=== PATIENT | female | born 1995 | race Two or more races ===

== ENCOUNTER 2021-05-17 09:00 | Inpatient (IN) | payer BC, OTHER ==
[2021-05-17] MEDS: ELECTROLYTE-148 SOLN 1,000 ML IV SCH (09:30)
[2021-05-17] MEDS ORDERED: PROMETHAZINE HCL 25 MG/1 ML VIAL IVPUSH ONE (09:37)
[2021-05-17] MEDS ORDERED: BUTORPHANOL TARTRATE 1 MG/ML VIAL IVPB PRN (09:37)
[2021-05-17] MEDS ORDERED: AMPICILLIN SODIUM 2 GM VIAL ONE (09:55)
[2021-05-17] MEDS ORDERED: AMPICILLIN - 2 GM in SODIUM CHLORIDE 100 ML IVPB ONE (10:00)
[2021-05-17 10:10] LABS: BASO % 0.2 % (0-2.0); EOS % 0.4 % (0-4.5); HEMATOCRIT 32.3 % (32.4-45.2); LYMPH % 16.8 % (8-40); MCH 31.5 pg (25.7-33.7); MCHC 34.2 g/dl (32.0-36.0); MEAN CELL VOLUME 92.2 fl (80-96); MEAN PLT VOLUME 9.3 fl (7.5-11.1); MONO % 4.2 % (3.8-10.2); NEUT % 78.4 % (42.8-82.8); PLATELET COUNT 211 10^3/uL (134-434); WHITE BLOOD COUNT 8.7 K/mm3 (4.0-10.0)
[2021-05-17 10:11] VITALS: BMI 28.7
[2021-05-17 10:16] LABS: INR 0.84 (0.83-1.09); PROTHROMBIN TIME (PATIENT) 10.2 SEC (9.7-13.0)
[2021-05-17 10:19] LABS: ACTIVATED PTT 25.6 SECONDS (25.2-36.5)
[2021-05-17 10:35] LABS: CALCIUM 8.6 mg/dL (8.5-10.1)
[2021-05-17 10:37] LABS: BLOOD UREA NITROGEN 11.7 mg/dL (7-18)
[2021-05-17 10:39] LABS: CREATININE 0.5 mg/dL (0.55-1.3)
[2021-05-17 11:31] LABS: POC NITRAZINE POS
[2021-05-17] MEDS ORDERED: AMPICILLIN SODIUM 1 GM VIAL ONE ×3 (14:05→21:56)
[2021-05-17] MEDS: AMPICILLIN - 1 GM in SODIUM CHLORIDE 100 ML IVPB SCH ×3 (14:08→22:30)
[2021-05-18] MEDS ORDERED: PROMETHAZINE HCL 25 MG/1 ML VIAL ONE (00:34)
[2021-05-18] MEDS ORDERED: BUTORPHANOL TARTRATE 2 MG/ML VIAL ONE (00:34)
[2021-05-18] MEDS ORDERED: AMPICILLIN SODIUM 1 GM VIAL ONE ×6 (01:55→22:11)
[2021-05-18] MEDS: AMPICILLIN - 1 GM in SODIUM CHLORIDE 100 ML IVPB SCH ×6 (02:00→22:14)
[2021-05-18] MEDS: ELECTROLYTE-148 SOLN 1,000 ML IV SCH ×2 (03:10→10:00)
[2021-05-18] MEDS ORDERED: BUPIVACAINE HCL/PF 0.25% (2.5MG/ML) 10 ML VIAL ONE ×2 (11:48→20:14)
[2021-05-18] MEDS ORDERED: FENTANYL/BUPIVACAINE/NS/PF - PCEA - 50 ML DISP.SYRIN EP ONE ×4 (11:50→22:57)
[2021-05-18] MEDS ORDERED: LIDOCAINE HCL/EPINEPHRINE/PF 10 ML VIAL ONE (12:09)
[2021-05-18] MEDS ORDERED: NALOXONE HCL 0.4 MG/ML VIAL IVPUSH PRN (12:27)
[2021-05-18] MEDS ORDERED: FENTANYL/BUPIVACAINE/NS/PF - PCEA - 50 ML DISP.SYRIN EP SCH (12:30)
[2021-05-18] MEDS ORDERED: OXYTOCIN 30 UNITS in 0.9% NS 30 UNIT/500 ML INFUS.BAG IVPB ONE (15:50)
[2021-05-18] MEDS: OXYTOCIN 30 UNITS in 0.9% NS 30 UNIT/500 ML INFUS.BAG IVPB SCH (16:00)
[2021-05-18] MEDS ORDERED: PCA PUMP NR ONE (17:11)
[2021-05-18 18:35] LABS: EPI CELLS >36 /uL (0-25.1); HYALINE CASTS 31 /uL (0-3.1); URINE APPEARANCE CLOUDY; URINE BACTERIA 89 /uL (0-1359); URINE BILIRUBIN NEGATIVE (NEGATIVE); URINE COLOR YELLOW; URINE GLUCOSE (UA) NEGATIVE (NEGATIVE); URINE KETONE NEGATIVE (NEGATIVE); URINE LEUK ESTERASE NEGATIVE (NEGATIVE); URINE NITRITE NEGATIVE (NEGATIVE); URINE PROTEIN 4+ (NEGATIVE); URINE UROBILINOGEN 0.2 mg/dL (0.2-1.0)
[2021-05-18 18:43] LABS: URINE RBC 1135.8 /uL (0-23.9); URINE WBC 70.1 /uL (0-25.8)
[2021-05-18 18:45] LABS: RETICULOCYTES 1.88 % (0.5-1.5)
[2021-05-18 18:57] LABS: GAMMA GLUTAMYL TRANSPEPTIDASE < 3 U/L (5-85)
[2021-05-18 19:02] LABS: SGOT/AST 13 U/L (15-37); URIC ACID 4.3 mg/dL (2.6-7.2)
[2021-05-18 19:22] LABS: URINE CRYSTALS NON SEEN /hpf
[2021-05-18] MEDS ORDERED: OXYTOCIN 20 UNITS in 0.9% NS 20 UNIT/1,000 ML INFUS.BAG IV ONE (22:57)
[2021-05-19] MEDS ORDERED: BENZOCAINE 28 GM HEMORRHOIDAL OINTMENT PR PRN (00:28)
[2021-05-19] MEDS ORDERED: BENZOCAINE 20% 57 GM BOTTLE TP PRN (00:28)
[2021-05-19] MEDS ORDERED: IBUPROFEN 600 MG TABLET (FP) PO PRN (00:28)
[2021-05-19] MEDS ORDERED: METHYLERGONOVINE MALEATE 0.2 MG/1 ML AMP IM PRN (00:28)
[2021-05-19] MEDS ORDERED: WITCH HAZEL 50% (TUCKS) 40 PAD/JAR PAD TP PRN (00:28)
[2021-05-19] MEDS ORDERED: BISACODYL 10 MG SUPP.RECT PR PRN (00:28)
[2021-05-19] MEDS ORDERED: OXYTOCIN 20 UNITS in 0.9% NS 20 UNIT/1,000 ML INFUS.BAG IV SCH (00:30)
[2021-05-19] MEDS: ACETAMINOPHEN 325 MG TABLET (FP) PO PRN ×3 (00:30→22:37)
[2021-05-19] MEDS ORDERED: ACETAMINOPHEN 325 MG TABLET (FP) ONE ×2 (00:40→00:41)
[2021-05-19] MEDS ORDERED: IBUPROFEN 600 MG TABLET (FP) PO ONE (00:40)
[2021-05-19 10:19] LABS: BASO % 0.3 % (0-2.0); EOS % 0.1 % (0-4.5); HEMATOCRIT 31.5 % (32.4-45.2); HEMOGLOBIN 10.6 GM/dL (10.7-15.3); LYMPH % 14.3 % (8-40); MCHC 33.7 g/dl (32.0-36.0); MEAN PLT VOLUME 9.4 fl (7.5-11.1); MONO % 4.7 % (3.8-10.2); NEUT % 80.6 % (42.8-82.8); PLATELET COUNT 188 10^3/uL (134-434); RBC 3.43 M/mm3 (3.60-5.2); RDW 13.7 % (11.6-15.6); WHITE BLOOD COUNT 12.5 K/mm3 (4.0-10.0)
[2021-05-19] MEDS: OXYTOCIN 30 UNITS in 0.9% NS 30 UNIT/500 ML INFUS.BAG IVPB SCH (17:42)
[2021-05-20 10:48] VITALS: BP 123/68; PULSE 66; TEMP 98.1
[2021-05-20] MEDS: ACETAMINOPHEN 325 MG TABLET (FP) PO PRN (11:46)
[2021-05-20 12:08] LABS: BASO % 0.5 % (0-2.0); EOS % 0.6 % (0-4.5); HEMOGLOBIN 10.3 GM/dL (10.7-15.3); LYMPH % 18.1 % (8-40); MCH 31.7 pg (25.7-33.7); MCHC 34.4 g/dl (32.0-36.0); MEAN CELL VOLUME 92.4 fl (80-96); MEAN PLT VOLUME 9.3 fl (7.5-11.1); MONO % 5.1 % (3.8-10.2); NEUT % 75.7 % (42.8-82.8); PLATELET COUNT 182 10^3/uL (134-434); RBC 3.25 M/mm3 (3.60-5.2); RDW 14.2 % (11.6-15.6); WHITE BLOOD COUNT 10.8 K/mm3 (4.0-10.0)
== END 2021-05-20 13:00 | disposition home or self-care (01) | DRG 807 ==
LOC: JLDR 09:00 → J3W 05-19 02:29
PROVIDERS: ADMIT Obstetrics & Gynecology; ATTEND Obstetrics & Gynecology
PROC: 10E0XZZ Delivery of Products of Conception, External Approach (ICD-10-PCS; principal; 2021-05-17)
DX: O48.0 Post-term pregnancy (principal); Z37.0 Single live birth; O42.12 Full-term premature rupture of membranes, onset of labor more than 24 hours following rupture; O99.824 Streptococcus B carrier state complicating childbirth; O70.0 First degree perineal laceration during delivery; Z3A.40 40 weeks gestation of pregnancy
CPT/HCPCS: 36415; 59409; 80048; 81003; 82977; 83010; 83986-QW; 84450; 84460; 84550; 85025; 85032; 85045; 85610; 85730; 86780; 86850; 86900; 86901; C9803; U0003; U0005

== ENCOUNTER 2023-01-19 12:02 | Emergency (ER) | payer BC, OTHER ==
[2023-01-19 12:32] VITALS: BP 130/87; PULSE 77; RESP 18; TEMP 98; BMI 24.5
[2023-01-19 13:10] LABS: BASO % 0.8 % (0-2.0); EOS % 1.4 % (0-4.5); HEMATOCRIT 36.5 % (32.4-45.2); HEMOGLOBIN 12.2 GM/dL (10.7-15.3); LYMPH % 30.9 % (8-40); MCH 29.1 pg (25.7-33.7); MCHC 33.6 g/dl (32.0-36.0); MEAN CELL VOLUME 86.6 fl (80-96); MEAN PLT VOLUME 9.1 fl (7.5-11.1); MONO % 6.3 % (3.8-10.2); NEUT % 60.6 % (42.8-82.8); PLATELET COUNT 280 10^3/uL (134-434); RBC 4.21 M/mm3 (3.60-5.2); RDW 13.9 % (11.6-15.6); WHITE BLOOD COUNT 6.9 K/mm3 (4.0-10.0)
[2023-01-19 13:19] LABS: HCG,QUALITATIVE URINE Negative
[2023-01-19 13:21] LABS: EPI CELLS 34 /uL (0-25.1); HYALINE CASTS 1 /uL (0-3.1); PH,URINE 7.5 (5.0-8.0); URINE APPEARANCE CLEAR; URINE BACTERIA 1156 /uL (0-1359); URINE BILIRUBIN NEGATIVE (NEGATIVE); URINE COLOR ORANGE; URINE GLUCOSE (UA) NEGATIVE (NEGATIVE); URINE KETONE NEGATIVE (NEGATIVE); URINE LEUK ESTERASE TRACE (NEGATIVE); URINE NITRITE NEGATIVE (NEGATIVE); URINE PROTEIN 3+ (NEGATIVE); URINE RBC 94 /uL (0-23.9); URINE UROBILINOGEN 0.2 mg/dL (0.2-1.0); URINE WBC 64 /uL (0-25.8)
[2023-01-19 13:32] LABS: ALBUMIN 2.5 g/dl (3.4-5.0); BLOOD UREA NITROGEN 13.3 mg/dL (7-18); CALCIUM 8.6 mg/dL (8.5-10.1)
[2023-01-19 13:35] LABS: CREATININE 0.5 mg/dL (0.55-1.3)
[2023-01-19 13:37] LABS: BILIRUBIN,TOTAL 0.3 mg/dL (0.2-1); TOT PROT 5.2 g/dl (6.4-8.2)
[2023-01-19] MEDS ORDERED: CEFTRIAXONE 1 GM in DEXTROSE 5%-WATER - 100 ML IVPB ONE (13:58)
[2023-01-19] MEDS ORDERED: CEFTRIAXONE 1 GM/50 ML BAG ONE (14:02)
== END 2023-01-19 14:26 | disposition home or self-care (01) ==
LOC: JER 12:02
PROC: 3E033GC Introduction of Other Therapeutic Substance into Peripheral Vein, Percutaneous Approach (ICD-10-PCS; principal; 2023-01-19)
DX: N93.9 Abnormal uterine and vaginal bleeding, unspecified (principal)
CPT/HCPCS: 36415; 80053; 81003; 84702; 84703; 85025; 86850; 86900; 86901; 87086; 99284-25

== ENCOUNTER 2023-04-26 13:31 | Inpatient (IN) | payer OTHER ==
[2023-04-26 14:51] LABS: EPI CELLS >36 /uL (0-25.1); HYALINE CASTS 10 /uL (0-3.1); URINE APPEARANCE CLOUDY; URINE BACTERIA 8579 /uL (0-1359); URINE BILIRUBIN NEGATIVE (NEGATIVE); URINE COLOR YELLOW; URINE GLUCOSE (UA) NEGATIVE (NEGATIVE); URINE KETONE TRACE (NEGATIVE); URINE LEUK ESTERASE NEGATIVE (NEGATIVE); URINE NITRITE NEGATIVE (NEGATIVE); URINE PROTEIN 4+ (NEGATIVE); URINE UROBILINOGEN 0.2 mg/dL (0.2-1.0)
[2023-04-26 14:52] LABS: BASO % 0.6 % (0-2.0); EOS % 1.5 % (0-4.5); HEMATOCRIT 33.3 % (32.4-45.2); HEMOGLOBIN 11.3 GM/dL (10.7-15.3); MCH 28.9 pg (25.7-33.7); MEAN CELL VOLUME 85.2 fl (80-96); MEAN PLT VOLUME 9.6 fl (7.5-11.1); MONO % 6.8 % (3.8-10.2); NEUT % 63.1 % (42.8-82.8); PLATELET COUNT 307 10^3/uL (134-434); RBC 3.91 M/mm3 (3.60-5.2); RDW 13.7 % (11.6-15.6); WHITE BLOOD COUNT 9.6 K/mm3 (4.0-10.0)
[2023-04-26 14:55] LABS: URINE RBC 1190.8 /uL (0-23.9)
[2023-04-26 15:15] LABS: POTASSIUM 4.3 mmol/L (3.5-5.1)
[2023-04-26 15:17] LABS: ALBUMIN 1.9 g/dl (3.4-5.0); CALCIUM 8.1 mg/dL (8.5-10.1)
[2023-04-26 15:18] LABS: BLOOD UREA NITROGEN 23.2 mg/dL (7-18)
[2023-04-26 15:22] LABS: BILIRUBIN,TOTAL 0.1 mg/dL (0.2-1); TOT PROT 4.1 g/dl (6.4-8.2)
[2023-04-26 15:26] LABS: N-TERMINAL BNP 800.5 pg/ml (5-125)
[2023-04-26 23:00] VITALS: BMI 28.2
[2023-04-27] MEDS ORDERED: FUROSEMIDE 40 MG/4 ML INJECTABLE VIAL IVPUSH ONE (10:02)
[2023-04-27 10:06] LABS: BASO % 0.5 % (0-2.0); EOS % 1.9 % (0-4.5); HEMATOCRIT 30.3 % (32.4-45.2); HEMOGLOBIN 10.6 GM/dL (10.7-15.3); LYMPH % 30.2 % (8-40); MCH 29.7 pg (25.7-33.7); MEAN CELL VOLUME 84.8 fl (80-96); NEUT % 61.4 % (42.8-82.8); PLATELET COUNT 260 10^3/uL (134-434); RBC 3.57 M/mm3 (3.60-5.2); RDW 13.8 % (11.6-15.6); WHITE BLOOD COUNT 7.9 K/mm3 (4.0-10.0)
[2023-04-27 10:42] LABS: POTASSIUM 4.2 mmol/L (3.5-5.1)
[2023-04-27 10:47] LABS: ALBUMIN 1.6 g/dl (3.4-5.0); BLOOD UREA NITROGEN 20.2 mg/dL (7-18)
[2023-04-27 10:50] LABS: CREATININE 0.9 mg/dL (0.55-1.3)
[2023-04-27 10:51] LABS: TOT PROT 3.7 g/dl (6.4-8.2)
[2023-04-27 10:52] LABS: BILIRUBIN,TOTAL 0.2 mg/dL (0.2-1)
[2023-04-27] MEDS: ACETAMINOPHEN 325 MG TABLET (FP) PO PRN (21:51)
[2023-04-28] MEDS: ACETAMINOPHEN 325 MG TABLET (FP) PO PRN ×2 (08:43→16:31)
[2023-04-28 09:02] LABS: HEMATOCRIT 32.3 % (32.4-45.2); HEMOGLOBIN 10.6 GM/dL (10.7-15.3); MCH 28.3 pg (25.7-33.7); MCHC 32.9 g/dl (32.0-36.0); MEAN PLT VOLUME 9.9 fl (7.5-11.1); PLATELET COUNT 277 10^3/uL (134-434); RBC 3.76 M/mm3 (3.60-5.2); RDW 13.7 % (11.6-15.6); WHITE BLOOD COUNT 8.5 K/mm3 (4.0-10.0)
[2023-04-28 09:06] LABS: INR 0.91 (0.83-1.09); PROTHROMBIN TIME (PATIENT) 10.6 SEC (9.7-13.0)
[2023-04-28 09:16] LABS: POTASSIUM 4.4 mmol/L (3.5-5.1)
[2023-04-28 09:20] LABS: ALBUMIN 1.7 g/dl (3.4-5.0); BLOOD UREA NITROGEN 17.7 mg/dL (7-18)
[2023-04-28 09:24] LABS: CREATININE 0.8 mg/dL (0.55-1.3); TOT PROT 3.8 g/dl (6.4-8.2)
[2023-04-28 09:25] LABS: BILIRUBIN,TOTAL 0.2 mg/dL (0.2-1)
[2023-04-28] MEDS ORDERED: MIDAZOLAM HCL 2 MG/2 ML SINGLE DOSE VIAL ONE (11:13)
[2023-04-28] MEDS ORDERED: FENTANYL CITRATE/PF 50 MCG/ML VIAL ONE (11:14)
[2023-04-28] MEDS ORDERED: SODIUM CHLORIDE 500 ML IV SCH (12:00)
[2023-04-28] MEDS ORDERED: MIDAZOLAM HCL 2 MG/2 ML SINGLE DOSE VIAL IVPUSH ONE ×2 (12:05→12:22)
[2023-04-28 13:14] VITALS: RESP 18
[2023-04-28] MEDS ORDERED: ONDANSETRON 4 MG/2 ML VIAL IVPUSH ONE (17:00)
[2023-04-28] MEDS ORDERED: traMADol HCL 50 MG TABLET PO ONE (21:30)
[2023-04-29 07:08] VITALS: BP 119/59; PULSE 77; TEMP 98.4
[2023-04-29] MEDS ORDERED: LISINOPRIL 5 MG TABLET PO SCH (10:00)
[2023-05-01 21:06] LABS: ATYPICAL pANCA <1:20 titer (Neg:<1:20); C-ANCA <1:20 titer (Neg:<1:20)
[2023-05-02 05:14] LABS: ANTI-DNAse B <78 U/mL (0-120)
== END 2023-04-29 10:35 | disposition home or self-care (01) | DRG 462 ==
LOC: JER 13:31 → JERFT 13:31 → JERBED 17:39 → J7W 04-27 00:41
PROVIDERS: ADMIT Family Medicine; ATTEND Family Medicine
PROC: 0TB03ZX Excision of Right Kidney, Percutaneous Approach, Diagnostic (ICD-10-PCS; principal; 2023-04-28)
DX: N04.9 Nephrotic syndrome with unspecified morphologic changes (principal); N05.5 Unspecified nephritic syndrome with diffuse mesangiocapillary glomerulonephritis; G93.31 Postviral fatigue syndrome; R31.9 Hematuria, unspecified; R60.0 Localized edema; R80.9 Proteinuria, unspecified
CPT/HCPCS: 0241U-QW; 36415; 50200; 71046-TC-FY; 76705-TC; 76775-TC; 76942-TC; 77012-TC; 80053; 81003; 82570; 83516; 83520; 83880; 83935; 84155; 84156; 84165; 84443; 84703; 85025; 85027; 85610; 85651; 86038; 86060; 86140; 86160; 86215; 86225; 86256; 86704; 86803; 87340; 87517; 88300-TC; 88329; 93005; 93010; 93970-TC; 99285-25